=== PATIENT | male | born 1950 | race Caucasian/White ===

== ENCOUNTER 2017-08-28 06:20 | Inpatient (IN) | payer OTHER, SELFPAY ==
[~2017-08-28] VITALS: Ht 177.8 cm; Wt 80.3 kg
[~2017-08-28 06:20] MED LIST: ASPI81CH PO; ATEN100 PO; CITA20 PO; CLON.3 PO; DIAZ2 PO; ENDUR ACIN PO; FAMO20 PO; FAMO40 PO; FISH OIL 1,0001 EAC1 PO; Hydrocodone-Ap1 EA20; LEVO750 PO; LORA.5 PO; MELO7.5 PO; METR500 PO; Norco 10-325 T1 EACH PO; OMEGA 3 500 SO1 EACH PO; RED YEAST RICE600 MG PO; Saw Palmetto160 MG PO; TAMS.4ER PO; VITAMIN D-32000 UNI1 PO
[2017-08-29 11:24] LABS: Creatinine, Body Fluid 0.87 mg/dL
[2017-08-30] MEDS ORDERED: Norco 10-325 T1 EACH PO (09:35)
[2017-08-30] MEDS ORDERED: SENN187 PO (09:36)
== END 2017-08-30 10:25 | disposition home or self-care (01) | DRG 708 ==
LOC: SURS 06:20
PROVIDERS: Urology
PROC: 0VT04ZZ Resection of Prostate, Percutaneous Endoscopic Approach (ICD-10-PCS; principal; 2017-08-28 07:30)
PROC: 8E0W4CZ Robotic Assisted Procedure of Trunk Region, Percutaneous Endoscopic Approach (ICD-10-PCS; principal; 2017-08-28 07:30)
PROC: 0TSC4ZZ Reposition Bladder Neck, Percutaneous Endoscopic Approach (ICD-10-PCS; principal; 2017-08-28 07:30)
DX: C61 Malignant neoplasm of prostate (principal); K74.60 Unspecified cirrhosis of liver; F10.11 Alcohol abuse, in remission
CPT/HCPCS: 82570; 88304; 88305; 88309; J0171; J0690; J1885; J2250; J2270; J2405; J2710; J3010; J7042; J7120

== ENCOUNTER 2018-03-10 20:43 | Observation (INO) | payer OTHER ==
[~2018-03-10] VITALS: Ht 177.8 cm; Wt 85.0 kg
[~2018-03-10 20:43] MED LIST changes: +SENN187 PO
[2018-03-10 21:21] LABS: BASOPHILS ABSOLUTE AUTO 0.04 K/mm3 (0.00-0.23); BASOPHILS PERCENT AUTO 1 % (0-2); EOSINOPHILS ABSOLUTE AUTO 0.28 K/mm3 (0.00-0.68); EOSINOPHILS PERCENT AUTO 5 % (0-6); Hematocrit 42.4 % (37.0-53.0); Hemoglobin 14.6 g/dL (13.5-17.5); IMMATURE GRAN ABSOLUTE AUTO 0.02 K/mm3 (0.00-0.10); IMMATURE GRAN PERCENT AUTO 0 % (0-1); LYMPHOCYTES ABSOLUTE AUTO 1.08 K/mm3 (0.84-5.20); LYMPHOCYTES PERCENT AUTO 18 % (21-46); MONOCYTES ABSOLUTE AUTO 0.45 K/mm3 (0.16-1.47); MONOCYTES PERCENT AUTO 8 % (4-13); Mean Corpuscular HGB Conc 34.4 g/dL (31.5-36.5); Mean Corpuscular Volume 93 fL (80-100); Mean Platelet Volume 9.4 fL (9.1-12.4); NEUTROPHILS ABSOLUTE AUTO 4.09 K/mm3 (1.96-9.15); NEUTROPHILS PERCENT AUTO 69 % (41-73); Platelet Count 248 K/mm3 (150-400); RDW Coefficient Variation 12.4 % (11.7-14.2); RDW Standard Deviation 42.4 fL (35.1-46.3); Red Blood Cell Count 4.56 M/mm3 (4.30-5.90); White Blood Cell Count 5.96 K/mm3 (4.00-11.30)
[2018-03-10] MEDS ORDERED: TRAM50 PO (21:23)
[2018-03-10] MEDS ORDERED: TOLT2ER PO (21:25)
[2018-03-10] MEDS ORDERED: MAG OXIDE PO (21:25)
[2018-03-10 21:42] LABS: Alanine Aminotransfer (ALT/SGP 32 U/L (12-78); Albumin, Blood 3.8 g/dL (3.4-5.0); Alk Phos 109 U/L (50-136); Anion Gap 9 mmol/L (6-16); Aspartate Aminotrans (AST/SGOT 22 U/L (12-37); Bilirubin, Total 0.7 mg/dL (0.1-1.0); Blood Urea Nitrogen 10 mg/dL (8-24); Bun/Creatinine Ratio 11.2 (12.0-20.0); CO2, Blood 24 mmol/L (21-32); Calcium, Blood 8.5 mg/dL (8.5-10.1); Chloride, Blood 110 mmol/L (98-108); Globulin, Blood 3.7 g/dL (2.2-4.0); Glomerular Filtration Rate >60 (60-); Glucose, Blood 144 mg/dL (70-99); Potassium, Blood 3.8 mmol/L (3.5-5.5); Sodium, Blood 143 mmol/L (136-145); Total Protein, Blood 7.5 g/dL (6.4-8.2); Troponin I <0.015 ng/mL (0.000-0.040)
[2018-03-11] MEDS ORDERED: FAMO20 PO (00:04)
[2018-03-11] MEDS ORDERED: DOCU100 PO (00:12)
[2018-03-11] MEDS ORDERED: TURMERIC500 M2 PO (00:13)
[2018-03-11 04:20] LABS: Very Low Density Lipoprot Chol 52 mg/dL (6-32)
[2018-03-11 04:24] LABS: CHOL/HDL RATIO 6.4; CPK Creatine Kinase 50 U/L (39-308); Cholesterol 191 mg/dL (50-200); HDL Cholesterol 30 mg/dL (>39); LDL/HDL RATIO 3.6; Low Density Lipoprotein Chol 109 mg/dL (0-110); Triglycerides 262 mg/dL (30-160); Troponin I <0.015 ng/mL (0.000-0.040)
[2018-03-11 04:27] LABS: Creatine Kinase MB < 1.0 ng/mL (0.0-3.6)
[2018-03-11] MEDS ORDERED: NIAC250ER PO (10:36)
[2018-03-12] MEDS ORDERED: K-Tab10 MEQ PO (17:27)
== END 2018-03-12 18:13 | disposition home or self-care (01) ==
LOC: ER 20:43 → PCU 20:44 → ER 20:44 → PCU 22:56 → ER 03-11 20:44 → PCU 03-12 18:13
PROVIDERS: Emergency Medicine; Internal Medicine
DX: I20.0 Unstable angina (principal); I11.9 Hypertensive heart disease without heart failure; I43 Cardiomyopathy in diseases classified elsewhere; I47.9 Paroxysmal tachycardia, unspecified; K57.92 Diverticulitis of intestine, part unspecified, without perforation or abscess without bleeding; E78.1 Pure hyperglyceridemia; K59.00 Constipation, unspecified; E87.6 Hypokalemia; R00.2 Palpitations; F41.1 Generalized anxiety disorder; M54.9 Dorsalgia, unspecified; G89.29 Other chronic pain; N40.0 Benign prostatic hyperplasia without lower urinary tract symptoms; Z88.8 Allergy status to other drugs, medicaments and biological substances; Z79.82 Long term (current) use of aspirin; Z79.899 Other long term (current) drug therapy; Z87.891 Personal history of nicotine dependence; Z79.01 Long term (current) use of anticoagulants
CPT/HCPCS: 36415; 71046; 78452; 80053; 80061; 82550; 82553; 84484; 85025; 93005; 93010; 93017; 93306; 99285-25; A9500; G0378; J0706; J1650; J2785; J7030

== ENCOUNTER → 2019-03-16 | Outpatient (CLI) | payer OTHER ==
[~2019-03-16] MED LIST changes: +ASCO500 PO; +BENADRYL25 MG PO; +Bactrim Ds Tab1 EACH PO; +DOCU100 PO; +K-Tab10 MEQ PO; +MAG OXIDE PO; +MELATONIN5 M1 PO; +NIAC250ER PO; +NICO21TP TOP; +Norco 7.5-3251 EACH PO; +POTA10T PO; +TOLT2ER PO; +TRAM50 PO; +TURMERIC500 M2 PO; -VITAMIN D-32000 UNI1 PO; +VITAMIN D-40400 UNIT PO; +VITAMIN K240 MCG PO
[2019-03-16 16:36] LABS: BASOPHILS ABSOLUTE AUTO 0.04 K/mm3 (0.00-0.23); BASOPHILS PERCENT AUTO 1 % (0-2); EOSINOPHILS PERCENT AUTO 3 % (0-6); Hematocrit 44.6 % (37.0-53.0); Hemoglobin 15.6 g/dL (13.5-17.5); IMMATURE GRAN ABSOLUTE AUTO 0.04 K/mm3 (0.00-0.10); IMMATURE GRAN PERCENT AUTO 1 % (0-1); LYMPHOCYTES PERCENT AUTO 15 % (21-46); MONOCYTES ABSOLUTE AUTO 0.46 K/mm3 (0.16-1.47); MONOCYTES PERCENT AUTO 6 % (4-13); Mean Corpuscular Volume 92 fL (80-100); Mean Platelet Volume 9.4 fL (9.1-12.4); NEUTROPHILS ABSOLUTE AUTO 5.38 K/mm3 (1.96-9.15); NEUTROPHILS PERCENT AUTO 74 % (41-73); Platelet Count 300 K/mm3 (150-400); RDW Coefficient Variation 12.7 % (11.7-14.2); RDW Standard Deviation 42.5 fL (35.1-46.3); Red Blood Cell Count 4.87 M/mm3 (4.30-5.90); White Blood Cell Count 7.22 K/mm3 (4.00-11.30)
[2019-03-16 16:43] LABS: Anion Gap 11 mmol/L (6-16); Blood Urea Nitrogen 14 mg/dL (8-24); Bun/Creatinine Ratio 13.7 (12.0-20.0); CO2, Blood 24 mmol/L (21-32); Calcium, Blood 9.3 mg/dL (8.5-10.1); Chloride, Blood 102 mmol/L (98-108); Creatinine, Blood 1.02 mg/dL (0.60-1.20); Glomerular Filtration Rate >60 (60-); Glucose, Blood 111 mg/dL (70-99); Potassium, Blood 4.6 mmol/L (3.5-5.5); Sodium, Blood 137 mmol/L (136-145)
== END | disposition home or self-care (01) ==
LOC: LAB SHORT 16:32 → LAB EV 16:32
PROVIDERS: Physician Assistant Medical
DX: R10.30 Lower abdominal pain, unspecified (principal)
CPT/HCPCS: 80048; 85025

== ENCOUNTER 2019-03-17 12:24 | Inpatient (IN) | payer OTHER ==
[~2019-03-17] VITALS: Ht 175.3 cm; Wt 72.7 kg
[~2019-03-17 12:24] MED LIST changes: -ASCO500 PO; -BENADRYL25 MG PO; -Bactrim Ds Tab1 EACH PO; -MELATONIN5 M1 PO; -NICO21TP TOP; -Norco 7.5-3251 EACH PO; -POTA10T PO; -VITAMIN K240 MCG PO
[2019-03-17] MEDS ORDERED: BENADRYL25 MG PO (13:33)
[2019-03-17] MEDS ORDERED: MELATONIN5 M1 PO (13:34)
[2019-03-17] MEDS ORDERED: VITAMIN K240 MCG PO (13:35)
--- NOTE | 2019-03-18 05:38 | NUR ---
SHIFT SUMMARY: PT HAS DONE WELL THIS SHIFT. PAIN MANAGED WITH NORCO PER EMAR. MEDICATED TWICE. PT KEERTHI CLR LIQ DIET. DENIES N/V. ABD SOFT WITH MILD DISTENTION. IV FLUIDS AND ABX INFUSING. PT INDEPENDENT IN ROOM AND AMBULATING FREQUENTLY.
--- NOTE | 2019-03-18 18:50 | NUR ---
SHIFT SUMMARY PAIN HAS BEEN MANAGED WITH PO PAIN MEDICATION THIS SHIFT. PT IS TOLERATING FULL LIQUID DIET. PT IS INDEPENDENT IN THE ROOM. VSS. REPORT GIVEN TO DILIP HURD.
--- NOTE | 2019-03-18 22:55 | NUR ---
PT AMBULATES OUTSIDE TO SMOKE c S/O
--- NOTE | 2019-03-19 04:40 | NUR ---
SHIFT SUMMARY PT IS A&OX4, INDEPENDENT IN RM. REPORTS ABD PAIN IS DECREASING IN INTENSITY, DENIES NEED FOR PAIN MEDS TONIGHT. PT DID REQUEST PRN ANXIETY AND BENADRYL AT BEDTIME, SEE EMAR. BECKA ADMINISTERED TONIGHT PER EMAR ORDERS. PT TOLERATED FULL LIQUID DIET AND WILL BE ADVANCING TO SOFT DIET THIS AM FOR BREAKFAST. NO OTHER CHANGES TO REPORT, WILL CONT TO MONITOR AND PROVIDE CARE UNTIL PRESUMED BY ONCOMING RN.
[2019-03-19 04:55] LABS: BASOPHILS ABSOLUTE AUTO 0.04 K/mm3 (0.00-0.23); BASOPHILS PERCENT AUTO 1 % (0-2); EOSINOPHILS ABSOLUTE AUTO 0.19 K/mm3 (0.00-0.68); EOSINOPHILS PERCENT AUTO 3 % (0-6); Hematocrit 45.6 % (37.0-53.0); Hemoglobin 15.6 g/dL (13.5-17.5); IMMATURE GRAN ABSOLUTE AUTO 0.06 K/mm3 (0.00-0.10); IMMATURE GRAN PERCENT AUTO 1 % (0-1); LYMPHOCYTES ABSOLUTE AUTO 1.33 K/mm3 (0.84-5.20); LYMPHOCYTES PERCENT AUTO 21 % (21-46); MONOCYTES ABSOLUTE AUTO 0.57 K/mm3 (0.16-1.47); MONOCYTES PERCENT AUTO 9 % (4-13); Mean Corpuscular HGB 32.1 pg (26.0-34.0); Mean Corpuscular HGB Conc 34.2 g/dL (31.5-36.5); Mean Corpuscular Volume 94 fL (80-100); Mean Platelet Volume 9.2 fL (9.1-12.4); NEUTROPHILS ABSOLUTE AUTO 4.02 K/mm3 (1.96-9.15); NEUTROPHILS PERCENT AUTO 65 % (41-73); Platelet Count 273 K/mm3 (150-400); RDW Coefficient Variation 12.5 % (11.7-14.2); RDW Standard Deviation 43.2 fL (35.1-46.3); Red Blood Cell Count 4.86 M/mm3 (4.30-5.90); White Blood Cell Count 6.21 K/mm3 (4.00-11.30)
[2019-03-19 05:26] LABS: C-REACTIVE PROTEIN, EXT RANGE 0.522 mg/dL (0.000-0.300); Magnesium, Blood 2.3 mg/dL (1.6-2.4)
[2019-03-19 05:28] LABS: Alanine Aminotransfer (ALT/SGP 21 U/L (12-78); Albumin, Blood 3.4 g/dL (3.4-5.0); Albumin/Globulin Ratio 0.9 (0.8-1.8); Alk Phos 78 U/L (50-136); Anion Gap 8 mmol/L (6-16); Aspartate Aminotrans (AST/SGOT 18 U/L (12-37); Bilirubin, Total 0.4 mg/dL (0.1-1.0); Blood Urea Nitrogen 9 mg/dL (8-24); Bun/Creatinine Ratio 11.1 (12.0-20.0); CO2, Blood 24 mmol/L (21-32); Chloride, Blood 108 mmol/L (98-108); Creatinine, Blood 0.81 mg/dL (0.60-1.20); Globulin, Blood 3.6 g/dL (2.2-4.0); Glomerular Filtration Rate >60 (60-); Glucose, Blood 96 mg/dL (70-99); Phosphorus, Blood 3.6 mg/dL (2.5-4.9); Potassium, Blood 4.2 mmol/L (3.5-5.5); Sodium, Blood 140 mmol/L (136-145)
--- NOTE | 2019-03-19 18:18 | NUR ---
SHIFT SUMMARY PAIN HAS BEEN MANAGED WITH PO NORCO THIS SHIFT. PT IS TOLERATING HIS DIET. PT IS INDEPENDENT IN THE ROOM. HE COMPLAINS OF LLQ DISCOMFORT. VSS. WILL MONITOR UNTIL REPORT TO ONCOMING RN.
--- NOTE | 2019-03-20 06:33 | NUR ---
PT HAD NO ACUTE CHANGES T/O NIGHT; VSS. ABD SOFT, PT MED FOR PAIN X1, HAD NO C/O N/V, REP +BM. PT AMB INDEP, KEERTHI WELL. IV ABX CONT PER ORDERS. PT USING CALL LIGHT FOR ASSISTANCE, WILL CONT TO MONITOR UNTIL REP GIVEN TO ONCOMING RN.
--- NOTE | 2019-03-20 07:55 | NUR ---
ASSESSMENT: PT SLEEPING AT THIS TIME. RESP E/U. NO S/S DISTRESS. CALL LIGHT IN REACH. WILL ALLOW REST AND FULLY ASSESS WHEN PT AWAKE.
--- NOTE | 2019-03-20 16:37 | NUR ---
MEDICATION REACTION: PT STARTED LEVAQUIN SCHEDULED, PT HAD ABOUT HALF OF BAG IV AND CALLED THIS RN TO CHECK IV. REDNESS AND SWELLING NOTED ALL THE WAY UP ARM TO ELBOW FOLLOWING IV SITE. LEVAQUIN STOPPED AND FLUSHED WITH SALINE. BENADRYL GIVEN PT STATES IT ITCHES. IV REMAINS PATENT WITH BLOOD RETURN. NOTIFIED AND NENITA REDDY'Dori JOVEL HUNG SCHEDULED.
--- NOTE | 2019-03-20 18:17 | NUR ---
PT HAS BEEN STABLE THIS SHIFT. PASSING FLATUS AND STOOLS. TOLERATING REGULAR DIET. PT INDEP IN ROOM AND HALLWAYS. VOIDING WELL. MIN PAIN, CONTROLLED WITH PRN MEDS. NEW IV THIS SHIFT. PT HAD ALLERGIC REACTION TO MD NENITA NOTIFIED, MED DC'D AND ADDED TO ALLERGY LIST. CONT FLAGYL. PLAN TO CHANGE TO ORAL ABX TOMORROW AND POSSIBLY DC HOME. PT USES CALL LIGHT APPROPRIATELY PRN.
--- NOTE | 2019-03-20 23:00 | NUR ---
SITTING UP IN BED WITH EYES OPEN WHILE WATCHING TV. HAND OFF GIVEN TO LOUIS Smalls RN USING SBAR. 2300/0000 MEDS GIVEN TO Serina MYERS TO ADMINISTER TO PT.
--- NOTE | 2019-03-20 23:00 | NUR ---
recvd report from previous RN Ana Rosa. pt reading in bed, a/0 x 4, pleasant/cooperative. pt denies abd at this time. bed in lowest position, bed rails up x 2, call light within reach
[2019-03-21 05:05] LABS: BASOPHILS ABSOLUTE AUTO 0.07 K/mm3 (0.00-0.23); BASOPHILS PERCENT AUTO 1 % (0-2); EOSINOPHILS ABSOLUTE AUTO 0.29 K/mm3 (0.00-0.68); EOSINOPHILS PERCENT AUTO 4 % (0-6); Hematocrit 44.6 % (37.0-53.0); Hemoglobin 15.1 g/dL (13.5-17.5); IMMATURE GRAN PERCENT AUTO 1 % (0-1); LYMPHOCYTES ABSOLUTE AUTO 1.57 K/mm3 (0.84-5.20); LYMPHOCYTES PERCENT AUTO 23 % (21-46); MONOCYTES ABSOLUTE AUTO 0.65 K/mm3 (0.16-1.47); MONOCYTES PERCENT AUTO 9 % (4-13); Mean Corpuscular HGB 31.1 pg (26.0-34.0); Mean Corpuscular HGB Conc 33.9 g/dL (31.5-36.5); Mean Corpuscular Volume 92 fL (80-100); Mean Platelet Volume 9.2 fL (9.1-12.4); NEUTROPHILS ABSOLUTE AUTO 4.29 K/mm3 (1.96-9.15); NEUTROPHILS PERCENT AUTO 62 % (41-73); Platelet Count 266 K/mm3 (150-400); RDW Coefficient Variation 12.4 % (11.7-14.2); RDW Standard Deviation 41.8 fL (35.1-46.3); Red Blood Cell Count 4.85 M/mm3 (4.30-5.90); White Blood Cell Count 6.97 K/mm3 (4.00-11.30)
--- NOTE | 2019-03-21 05:19 | NUR ---
SHIFT SUMMARY: VSS, NO ACUTE CHANGES, PT REMAINED A/0 X 4, PLEASANT/COOPERATIVE. PT REPORTS PAIN CONTROLLED TO 2/10 IN ABD, 3/10 IN BACK R/T CHRONIC BACK PAIN. 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 PT APPEARS TO BE SLEEPING ON NURSE ROUNDING X 2. URINE OUTPUT >500 ML THIS SHIFT. PT ANTICIPATES DISCHARGE TODAY
[2019-03-21 05:32] LABS: Anion Gap 6 mmol/L (6-16); Blood Urea Nitrogen 15 mg/dL (8-24); Bun/Creatinine Ratio 17.8 (12.0-20.0); CO2, Blood 26 mmol/L (21-32); Calcium, Blood 9.1 mg/dL (8.5-10.1); Chloride, Blood 107 mmol/L (98-108); Creatinine, Blood 0.84 mg/dL (0.60-1.20); Glomerular Filtration Rate >60 (60-); Glucose, Blood 109 mg/dL (70-99); Potassium, Blood 4.2 mmol/L (3.5-5.5); Sodium, Blood 139 mmol/L (136-145)
[2019-03-21] MEDS ORDERED: Norco 7.5-3251 EACH PO (09:36)
[2019-03-21] MEDS ORDERED: METR500 PO (09:37)
[2019-03-21] MEDS ORDERED: Bactrim Ds Tab1 EACH PO (09:37)
--- NOTE | 2019-03-21 11:09 | NUR ---
DISCHARGE PT EDUCATED ON AND RECEIVED PRINTED DC INSTRUCTIONS AND VERB AN UNDERSTANDING. ABX RX FAXED OVER TO [facility] PER PT REQUEST. IV DC'D. PT GATHERED ALL PERSONAL BELONGINGS. PT VERB AN UNDERSTANDING OF F/U APPTS.
[2019-05-19] MEDS ORDERED: POTA10T PO (15:02)
[2019-05-19] MEDS ORDERED: Norco 7.5-3251 EACH PO (15:02)
[2019-05-19] MEDS ORDERED: NICO21TP TOP (15:03)
== END 2019-03-21 11:14 | disposition home or self-care (01) | DRG 392 ==
LOC: SURS 12:24
PROVIDERS: Student in an Organized Health Care Education/Training Program; ADMIT Hospitalist
DX: K57.80 Diverticulitis of intestine, part unspecified, with perforation and abscess without bleeding (principal); I10 Essential (primary) hypertension; F41.9 Anxiety disorder, unspecified; E78.5 Hyperlipidemia, unspecified; N40.0 Benign prostatic hyperplasia without lower urinary tract symptoms; K21.9 Gastro-esophageal reflux disease without esophagitis; K59.00 Constipation, unspecified; M19.90 Unspecified osteoarthritis, unspecified site; Z88.8 Allergy status to other drugs, medicaments and biological substances; Z85.46 Personal history of malignant neoplasm of prostate; Z87.891 Personal history of nicotine dependence; Z79.82 Long term (current) use of aspirin; Z79.899 Other long term (current) drug therapy
CPT/HCPCS: 36415; 74177; 80048; 80053; 83735; 84100; 85025; 85651; 86140; J1956; J7050; J7120; Q0163; Q9967

== ENCOUNTER 2019-05-22 13:58 | Inpatient (IN) | payer OTHER ==
[~2019-05-22] VITALS: Ht 175.3 cm; Wt 77.2 kg
[~2019-05-22 13:58] MED LIST changes: +BENADRYL25 MG PO; +Bactrim Ds Tab1 EACH PO; +MELATONIN5 M1 PO; +NICO21TP TOP; +Norco 7.5-3251 EACH PO; +POTA10T PO; +VITAMIN K240 MCG PO
[2019-05-23 14:14] LABS: Anion Gap 2 mmol/L (6-16); Blood Urea Nitrogen 17 mg/dL (8-24); Bun/Creatinine Ratio 19.2 (12.0-20.0); CO2, Blood 29 mmol/L (21-32); Calcium, Blood 9.1 mg/dL (8.5-10.1); Chloride, Blood 107 mmol/L (98-108); Creatinine, Blood 0.89 mg/dL (0.60-1.20); Glomerular Filtration Rate >60 (60-); Glucose, Blood 127 mg/dL (70-99); Potassium, Blood 4.2 mmol/L (3.5-5.5); Sodium, Blood 138 mmol/L (136-145)
[2019-05-23 14:30] LABS: Hematocrit 48.3 % (37.0-53.0); Hemoglobin 16.1 g/dL (13.5-17.5); Mean Corpuscular HGB Conc 33.3 g/dL (31.5-36.5); Mean Corpuscular Volume 96 fL (80-100); Mean Platelet Volume 9.6 fL (9.1-12.4); Platelet Count 271 K/mm3 (150-400); RDW Coefficient Variation 12.8 % (11.7-14.2); RDW Standard Deviation 45.6 fL (35.1-46.3); Red Blood Cell Count 5.03 M/mm3 (4.30-5.90); White Blood Cell Count 7.73 K/mm3 (4.00-11.30)
--- NOTE | 2019-05-25 06:37 | NUR ---
PT ADMITTED TO [facility]. AGREES WITH PLANNED SURGERY. MEDS, ALLERIES AND HX REVIEWED. LUNG SOUNDS CLEAR.
[2019-05-25] MEDS ORDERED: VITAMIN K240 MCG PO (06:41)
[2019-05-25] MEDS ORDERED: ASCO500 PO (17:25)
--- NOTE | 2019-05-25 19:03 | NUR ---
SHIFT SUMMARY PT HAD SURGERY TODAY. HAS BEEN TOLERATING SM AMTS ICE CHIPS BUT HAS BEEN NOP OTHERWISE PER ORDER. DELONG IN PLACE, OFF FLOOR, DRAINING. PT HAS CLINICAL RADIOLOGIST AND REPORTS TOLERABLE DISCOMFORT. SURGICAL SITES CDI. ALAN KAUR IN [facility].
[2019-05-26 04:22] LABS: BASOPHILS ABSOLUTE AUTO 0.03 K/mm3 (0.00-0.23); BASOPHILS PERCENT AUTO 0 % (0-2); EOSINOPHILS ABSOLUTE AUTO 0.01 K/mm3 (0.00-0.68); EOSINOPHILS PERCENT AUTO 0 % (0-6); Hematocrit 47.2 % (37.0-53.0); Hemoglobin 15.9 g/dL (13.5-17.5); IMMATURE GRAN ABSOLUTE AUTO 0.07 K/mm3 (0.00-0.10); IMMATURE GRAN PERCENT AUTO 1 % (0-1); LYMPHOCYTES ABSOLUTE AUTO 1.27 K/mm3 (0.84-5.20); LYMPHOCYTES PERCENT AUTO 11 % (21-46); MONOCYTES ABSOLUTE AUTO 1.24 K/mm3 (0.16-1.47); MONOCYTES PERCENT AUTO 11 % (4-13); Mean Corpuscular HGB 32.1 pg (26.0-34.0); Mean Corpuscular HGB Conc 33.7 g/dL (31.5-36.5); Mean Corpuscular Volume 95 fL (80-100); Mean Platelet Volume 9.7 fL (9.1-12.4); NEUTROPHILS ABSOLUTE AUTO 9.24 K/mm3 (1.96-9.15); NEUTROPHILS PERCENT AUTO 78 % (41-73); Platelet Count 263 K/mm3 (150-400); RDW Coefficient Variation 13.2 % (11.7-14.2); RDW Standard Deviation 46.1 fL (35.1-46.3); Red Blood Cell Count 4.95 M/mm3 (4.30-5.90); White Blood Cell Count 11.86 K/mm3 (4.00-11.30)
[2019-05-26 04:44] LABS: Anion Gap 8 mmol/L (6-16); Blood Urea Nitrogen 12 mg/dL (8-24); Bun/Creatinine Ratio 13.7 (12.0-20.0); CO2, Blood 24 mmol/L (21-32); Calcium, Blood 8.5 mg/dL (8.5-10.1); Chloride, Blood 108 mmol/L (98-108); Creatinine, Blood 0.88 mg/dL (0.60-1.20); Glomerular Filtration Rate >60 (60-); Glucose, Blood 99 mg/dL (70-99); Potassium, Blood 4.1 mmol/L (3.5-5.5); Sodium, Blood 140 mmol/L (136-145)
--- NOTE | 2019-05-26 06:50 | NUR ---
SUMMARY: POD [address] PERES. VSS, AFEBRILE, ROOM AIR, TOLERATING REG DIET WITHOUT NAUSEA AND PASSING MINIMAL FLATUS. VOIDING CLEAR, YELLOW URINE. PAIN WELL CONTROLLED WITH TORDAL AND 1 TAB NORCO X2 THIS SHIFT. ENCOURAGE OOB ACTIVITY AND POSSIBLE DC HOME LATER THIS DAY.
--- NOTE | 2019-05-26 16:38 | NUR ---
SHIFT SUMMARY PT A&OX4, VSS, POD1 LAP COLECTOMY, STERI STRIPS DRY & INTACT, ALAN DRAINING SEROSANG. DELONG PATENT & DRAINING DK URINE, PLAN TO DC IN AM. KEERTHI SIPS/CHIPS/POPSICLES, DENIES N&V. AMB W/FWW IN ROOM AND HALLWAY. PAIN MANAGED WITH FENT FULLER BRUSH MAN, PT REP PAIN MANAGED WELL AND DECREASING USE; IVF @ 75 MLS/HR; ABX GIVEN SCHEDULED. TCDB & I.S. USED T/O SHIFT. WILL REPORT TO ONCOMING NOC RN.
--- NOTE | 2019-05-26 20:40 | NUR ---
2039: PT SALINE LOCKED AND AMBULATES HALLS WITH FWW INDEPENDANTLY; STEADY ON FEET. PT CONTINUES TO BELCH FREQUENTLY BUT DENIES PASSING GAS YET.
[2019-05-27 04:49] LABS: BASOPHILS ABSOLUTE AUTO 0.03 K/mm3 (0.00-0.23); BASOPHILS PERCENT AUTO 0 % (0-2); EOSINOPHILS ABSOLUTE AUTO 0.16 K/mm3 (0.00-0.68); EOSINOPHILS PERCENT AUTO 2 % (0-6); Hematocrit 41.3 % (37.0-53.0); Hemoglobin 13.7 g/dL (13.5-17.5); IMMATURE GRAN ABSOLUTE AUTO 0.04 K/mm3 (0.00-0.10); IMMATURE GRAN PERCENT AUTO 1 % (0-1); LYMPHOCYTES ABSOLUTE AUTO 1.05 K/mm3 (0.84-5.20); LYMPHOCYTES PERCENT AUTO 14 % (21-46); MONOCYTES ABSOLUTE AUTO 0.65 K/mm3 (0.16-1.47); MONOCYTES PERCENT AUTO 9 % (4-13); Mean Corpuscular HGB Conc 33.2 g/dL (31.5-36.5); Mean Corpuscular Volume 97 fL (80-100); NEUTROPHILS ABSOLUTE AUTO 5.54 K/mm3 (1.96-9.15); NEUTROPHILS PERCENT AUTO 74 % (41-73); Platelet Count 173 K/mm3 (150-400); RDW Coefficient Variation 13.1 % (11.7-14.2); RDW Standard Deviation 46.5 fL (35.1-46.3); Red Blood Cell Count 4.28 M/mm3 (4.30-5.90); White Blood Cell Count 7.47 K/mm3 (4.00-11.30)
[2019-05-27 05:13] LABS: Anion Gap 5 mmol/L (6-16); Blood Urea Nitrogen 10 mg/dL (8-24); Bun/Creatinine Ratio 11.2 (12.0-20.0); CO2, Blood 27 mmol/L (21-32); Calcium, Blood 8.1 mg/dL (8.5-10.1); Chloride, Blood 106 mmol/L (98-108); Creatinine, Blood 0.89 mg/dL (0.60-1.20); Glomerular Filtration Rate >60 (60-); Glucose, Blood 99 mg/dL (70-99); Magnesium, Blood 1.9 mg/dL (1.6-2.4); Phosphorus, Blood 2.1 mg/dL (2.5-4.9); Potassium, Blood 4.2 mmol/L (3.5-5.5); Sodium, Blood 138 mmol/L (136-145)
--- NOTE | 2019-05-27 18:59 | NUR ---
SHIFT SUMMARY PT A&OX4, VSS, POD2 LAP COLECTOMY, 3 LAP STERIS D/I, ALAN SS DRAINAGE IN LG AMTS - DRESSING REINFORCED. DENIES FLATUS, REP BELCHING. NAUSEA TX'D WITH ZOFRAN AND PHENERGAN; SMALL AMT OF SIPS/ICE CHIPS. VOIDING WELL. AMBULATING INDEPENDENTLY TO BRP AND IN HALLWAY. PAIN MANAGED WITH POLITICAL SCIENTIST - PT REP DECREASED PAIN AND DECREASED USE OF POLITICAL SCIENTIST. REPORT GIVEN TO DAX HURD.
[2019-05-28 04:07] LABS: BASOPHILS ABSOLUTE AUTO 0.03 K/mm3 (0.00-0.23); BASOPHILS PERCENT AUTO 1 % (0-2); EOSINOPHILS ABSOLUTE AUTO 0.33 K/mm3 (0.00-0.68); EOSINOPHILS PERCENT AUTO 5 % (0-6); Hematocrit 39.8 % (37.0-53.0); Hemoglobin 13.3 g/dL (13.5-17.5); IMMATURE GRAN ABSOLUTE AUTO 0.03 K/mm3 (0.00-0.10); IMMATURE GRAN PERCENT AUTO 1 % (0-1); LYMPHOCYTES ABSOLUTE AUTO 1.04 K/mm3 (0.84-5.20); LYMPHOCYTES PERCENT AUTO 16 % (21-46); MONOCYTES ABSOLUTE AUTO 0.58 K/mm3 (0.16-1.47); MONOCYTES PERCENT AUTO 9 % (4-13); Mean Corpuscular HGB 32.1 pg (26.0-34.0); Mean Corpuscular HGB Conc 33.4 g/dL (31.5-36.5); Mean Corpuscular Volume 96 fL (80-100); Mean Platelet Volume 9.7 fL (9.1-12.4); NEUTROPHILS ABSOLUTE AUTO 4.57 K/mm3 (1.96-9.15); NEUTROPHILS PERCENT AUTO 69 % (41-73); Platelet Count 177 K/mm3 (150-400); RDW Coefficient Variation 12.9 % (11.7-14.2); RDW Standard Deviation 45.8 fL (35.1-46.3); Red Blood Cell Count 4.14 M/mm3 (4.30-5.90); White Blood Cell Count 6.58 K/mm3 (4.00-11.30)
[2019-05-28 04:27] LABS: Anion Gap 3 mmol/L (6-16); Blood Urea Nitrogen 5 mg/dL (8-24); CO2, Blood 30 mmol/L (21-32); Calcium, Blood 8.2 mg/dL (8.5-10.1); Chloride, Blood 107 mmol/L (98-108); Creatinine, Blood 0.84 mg/dL (0.60-1.20); Glomerular Filtration Rate >60 (60-); Glucose, Blood 122 mg/dL (70-99); Phosphorus, Blood 2.7 mg/dL (2.5-4.9); Potassium, Blood 4.2 mmol/L (3.5-5.5); Sodium, Blood 140 mmol/L (136-145)
--- NOTE | 2019-05-28 06:04 | NUR ---
Patient A/O x4. VSS. Pain managed with AGRI BUSINESS AGENT. IVF infusing. Ambulating in hallway. Lung sounds clear, bowel tones present. Patient passing gas. ALAN draining serosanguineous fluid.
[2019-05-28 09:23] LABS: Creatinine, Body Fluid 0.64 mg/dL
--- NOTE | 2019-05-28 11:46 | NUR ---
Upon receiving a request for spiritual care, I visited patient. Patient shares personal stories of where he has been and what he has done. Patient shares his concerns about his medical issues. I conduct a life review, hear confession and provide companionship, spiritual guidance, and prayer. Patient responds well and shows signs of catharsis, and reduced stress. I will continue to remain available to patient and family.
--- NOTE | 2019-05-28 16:09 | NUR ---
SUMMARY: PT IS POD3 SIGMOID COLECTOMY. VSS, A/O. PT DOING WELL OVERALL. SWITCHED TO PO PAIN MANAGEMENT TODAY, SEEMS TO BE WORKING WELL. PT HAS TAKEN FREQUENT WALKS AND HAD 3 BM'S. LIQUID STOOL. ALAN DRAIN HAS NEEDED TO BE EMPTIED 4-6 TIMES AND X2 DRESSING CHANGES AROUND THE TUBING SITE. SURGICAL SITES WNL. PT ABLE TO TOLERATE SMALL AMOUNTS OF REGULAR DIET, NO N/V. NO SAFETY CONCERNS AT THIS TIME. WILL REPORT TO DILIP HURD
--- NOTE | 2019-05-29 06:48 | NUR ---
SUMMARY PT UP IN HALLS. TOLERATING PO. MED X 1 PER PT REQUEST. SAID IT MAKES HIM SLEEP,BUT ALSO C/O "SLIGHT"NAUSEA.HAVING BMS.
[2019-05-30 04:01] LABS: BASOPHILS ABSOLUTE AUTO 0.01 K/mm3 (0.00-0.23); BASOPHILS PERCENT AUTO 0 % (0-2); EOSINOPHILS PERCENT AUTO 5 % (0-6); Hematocrit 43.8 % (37.0-53.0); Hemoglobin 14.6 g/dL (13.5-17.5); IMMATURE GRAN ABSOLUTE AUTO 0.02 K/mm3 (0.00-0.10); IMMATURE GRAN PERCENT AUTO 0 % (0-1); LYMPHOCYTES ABSOLUTE AUTO 1.08 K/mm3 (0.84-5.20); LYMPHOCYTES PERCENT AUTO 13 % (21-46); MONOCYTES ABSOLUTE AUTO 0.52 K/mm3 (0.16-1.47); MONOCYTES PERCENT AUTO 6 % (4-13); Mean Corpuscular HGB 31.3 pg (26.0-34.0); Mean Corpuscular HGB Conc 33.3 g/dL (31.5-36.5); Mean Corpuscular Volume 94 fL (80-100); Mean Platelet Volume 9.6 fL (9.1-12.4); NEUTROPHILS ABSOLUTE AUTO 6.57 K/mm3 (1.96-9.15); NEUTROPHILS PERCENT AUTO 76 % (41-73); Platelet Count 230 K/mm3 (150-400); RDW Coefficient Variation 12.8 % (11.7-14.2); RDW Standard Deviation 44.1 fL (35.1-46.3); Red Blood Cell Count 4.67 M/mm3 (4.30-5.90)
--- NOTE | 2019-05-30 06:16 | NUR ---
SHIFT SUMMARY: ALEJANDRO REPORTED SOME SYMPTOMS OF HEARTBURN AND NAUSEA FOR WHICH TUMS AND TYLENOL WERE EFFECTIVE. HE IS TOLERATING PO INTAKE WELL OTHERWISE. HE IS INDEPENDENT IN THE ROOM AND HALLWAY. ALAN DRAIN PATENT, DRAINING SEROSANGEINOUS FLUID. DRESSING AROUND ALAN DRAIN CHANGED D/T SATURATION. HE IS LYING IN BED WITH HIS CALL LIGHT IN REACH. NO ACUTE CHANGES THIS SHIFT.
--- NOTE | 2019-05-30 12:30 | NUR ---
ALAN DRAIN REMOVED BY DR BYRD AT THIS TIME
[2019-05-30] MEDS ORDERED: Norco 10-325 T1 EACH PO (12:57)
--- NOTE | 2019-05-30 13:36 | NUR ---
DISCHARGE PT DC INSTRUCTIONS GIVEN BY RN. PRINTED INSTRUCTIONS AND HARD RX SCRIPT SENT WITH PT. PT VOIDING, TOLERATING FOOD AND FLUIDS, AMBULATING IND. PERSONAL BELONGINGS RETURNED. REPORTS NO QUESTIONS. EXTRA DRESSING SUPPLIES SENT HOME WITH PT.
== END 2019-05-30 13:23 | disposition home or self-care (01) | DRG 331 ==
LOC: SURS 05-25 05:55 → PRE IP 05-25 07:30 → SURS 05-25 17:00
PROVIDERS: ADMIT Surgery
PROC: 8E0W0CZ Robotic Assisted Procedure of Trunk Region, Open Approach (ICD-10-PCS; 2019-05-25)
PROC: 0DTN0ZZ Resection of Sigmoid Colon, Open Approach (ICD-10-PCS; principal; 2019-05-25 07:30)
DX: K57.20 Diverticulitis of large intestine with perforation and abscess without bleeding (principal); E78.00 Pure hypercholesterolemia, unspecified; I10 Essential (primary) hypertension; K21.9 Gastro-esophageal reflux disease without esophagitis; F41.9 Anxiety disorder, unspecified; M19.90 Unspecified osteoarthritis, unspecified site; E83.39 Other disorders of phosphorus metabolism
CPT/HCPCS: 36415; 80048; 82570; 83735; 84100; 85025; 85027; 86850; 86900; 86901; 88307; 97110; 97162; 97530; A9270; J0690; J1100; J1650; J2250; J2370; J2405; J2550; J2704; J3010; J7050; J7060; J7120; Q0163

== ENCOUNTER → 2019-07-22 | Outpatient (CLI) | payer OTHER ==
[~2019-07-22] MED LIST changes: +ASCO500 PO
== END | disposition home or self-care (01) ==
LOC: LAB SHORT 17:00 → LAB 17:00
DX: G89.4 Chronic pain syndrome (principal); Z79.899 Other long term (current) drug therapy
CPT/HCPCS: G0480

== ENCOUNTER → 2019-09-03 | Outpatient (CLI) | payer OTHER ==
[2019-09-04 03:07] LABS: HBSAG SCREEN Negative (Negative); HEP A AB, IGM Negative (Negative); HEP B CORE AB, IGM Negative (Negative); HEP C VIRUS AB <0.1 (0.0-0.9); HIV SCREEN 4TH GENERATION WRFX Non Reactive (Non Reactive)
== END | disposition home or self-care (01) ==
LOC: LAB EV 11:07 → LAB SHORT 11:07
PROVIDERS: Physician Assistant
DX: Z20.9 Contact with and (suspected) exposure to unspecified communicable disease (principal); R53.83 Other fatigue
CPT/HCPCS: 80074; 87389

== ENCOUNTER → 2021-08-29 | Outpatient (CLI) | payer OTHER ==
[2021-08-30 09:59] LABS: Stool Occult Bld Immuno 1 Negative (NEGATIVE)
== END ==
LOC: LAB SHORT 15:01
PROVIDERS: Hospitalist
DX: Z12.11 Encounter for screening for malignant neoplasm of colon (principal)
CPT/HCPCS: 82274

== ENCOUNTER 2023-08-06 12:25 | Day surgery (SDC) | payer OTHER ==
[~2023-08-06] VITALS: Ht 175.3 cm; Wt 85.7 kg
[~2023-08-06 12:25] MED LIST changes: +CATAPRES0.2 M1 PO; +CINNAMON; +DIAZ10 PO; +FISH OIL; +GLUCOSAMINE; +LYSINE; +NIACIN; +OLME20 PO; +SUPER B; +TUMERIC; +VIT C; +VIT D; +ZINC
[2023-08-06] MEDS ORDERED: AMLO10 PO (12:53)
[2023-08-06] MEDS ORDERED: OLME20 PO (12:54)
[2023-08-06] MEDS ORDERED: ASPI81CH PO (12:54)
[2023-08-06] MEDS ORDERED: HYDROCODONE-AC1 EA19 PO (12:55)
[2023-08-06] MEDS ORDERED: BENADRYL25 MG PO (12:55)
--- NOTE | 2023-08-06 13:00 | NUR ---
08/06/23 1300 Izzy Collazo CALL LIGHT WITHIN REACH. CARISA IN RIGHT EYE AT 1258
[2023-08-06 14:12] VITALS: BP 149/92
== END 2023-08-06 14:50 | disposition home or self-care (01) ==
LOC: ORSCSDS 12:25
PROVIDERS: Student in an Organized Health Care Education/Training Program
PROC: 08RJ3JZ Replacement of Right Lens with Synthetic Substitute, Percutaneous Approach (ICD-10-PCS; principal; 2023-08-06 13:45)
DX: H25.13 Age-related nuclear cataract, bilateral (principal); I10 Essential (primary) hypertension; K21.9 Gastro-esophageal reflux disease without esophagitis; I47.10 Supraventricular tachycardia, unspecified; K74.60 Unspecified cirrhosis of liver; Z85.46 Personal history of malignant neoplasm of prostate; Z87.891 Personal history of nicotine dependence; Z79.899 Other long term (current) drug therapy
CPT/HCPCS: J2250; J3010; J7040; V2632

== ENCOUNTER 2023-08-27 12:41 | Day surgery (SDC) | payer OTHER ==
[~2023-08-27] VITALS: Ht 175.3 cm; Wt 86.4 kg
[~2023-08-27 12:41] MED LIST changes: +HYDROCODONE-AC1 EA19 PO; +NORVASC10 MG PO; +PEPCID40 MG PO; -VIT D; +VIT D3
[2023-08-27] MEDS ORDERED: HYDROCODONE-AC1 EAC7 PO (13:13)
[2023-08-27] MEDS ORDERED: Aspir 8181 MG PO (13:15)
--- NOTE | 2023-08-27 13:22 | NUR ---
08/27/23 1321 Chioma Cerrato PT TOOK ZYN POUCH OUT OF MOUTH AT 1320. DR. GONZALEZ NOTIFIED
[2023-08-27 14:14] VITALS: BP 132/86
== END 2023-08-27 14:29 | disposition home or self-care (01) ==
LOC: ORSCSDS 12:41
PROVIDERS: Student in an Organized Health Care Education/Training Program
PROC: 08RK3JZ Replacement of Left Lens with Synthetic Substitute, Percutaneous Approach (ICD-10-PCS; principal; 2023-08-27 14:30)
DX: H25.12 Age-related nuclear cataract, left eye (principal); Z96.1 Presence of intraocular lens; I10 Essential (primary) hypertension; Z87.891 Personal history of nicotine dependence; Z79.899 Other long term (current) drug therapy; F41.9 Anxiety disorder, unspecified; Z79.82 Long term (current) use of aspirin
CPT/HCPCS: J2250; J3010; J7040; V2632